=== PATIENT | female | born 1965 | race Two or more races ===

== ENCOUNTER 2021-02-01 12:24 | Emergency (ER) | payer BC ==
[~2021-02-01] VITALS: Ht 172.7 cm; Wt 92.5 kg
[2021-02-01] MEDS ORDERED: ULTRAM50 MG PO (12:51)
[2021-02-01] MEDS ORDERED: ACID REDUCER20 M1 PO (12:51)
[2021-02-01] MEDS ORDERED: HORIZANT300 MG PO (12:52)
[2021-02-01] MEDS ORDERED: DICLOFENAC POTA50 MG PO (16:03)
== END 2021-02-01 16:06 ==
LOC: ER 12:24
DX: S52.121A Displaced fracture of head of right radius, initial encounter for closed fracture (principal); W18.09XA Striking against other object with subsequent fall, initial encounter; Y93.89 Activity, other specified; Y92.89 Other specified places as the place of occurrence of the external cause; Y99.8 Other external cause status